=== PATIENT | female | born 1940 | race African-American/Black ===

== ENCOUNTER 2018-07-05 20:17 | Emergency (ER) | payer OTHER ==
[~2018-07-05] VITALS: Ht 172.7 cm; Wt 77.2 kg
[2018-07-05 20:24] VITALS: BP 154/68
== END 2018-07-05 22:41 | disposition left against medical advice (07) ==
LOC: ER 22:34
DX: R53.1 Weakness (principal); R42 Dizziness and giddiness; Z53.21 Procedure and treatment not carried out due to patient leaving prior to being seen by health care provider